=== PATIENT | female | born 1995 | race Caucasian/White ===

== ENCOUNTER → 2016-10-17 | Outpatient (CLI) | payer BC ==
[~2016-10-17] MED LIST: CLR10 PO; ETON1IMP2 INTRAD; FLUT0.15 NAE; MTR600X PO; MULT-1027 PO; NAPROXEN PO; OXYC-57 PO; VITAMIN B12 PO
--- NOTE | 2016-10-17 09:39 | DIAGNOSTIC IMAGING REPORT ---
CHEST 2 VIEWS ROUTINE HISTORY: Cough. PNEUMONIA COMPARISON: None. FINDINGS: The lungs are clear. Cardiac silhouette is normal in size. No pleural effusions. No pneumothorax. IMPRESSION: No acute process. Electronically signed by: Manish Whaley M.D. 10/17/2016 9:38 AM
== END | disposition home or self-care (01) ==
LOC: C.RAD1850 09:23
PROVIDERS: ATTEND Family Medicine Adolescent Medicine
DX: J18.9 Pneumonia, unspecified organism (principal)

== ENCOUNTER → 2016-10-31 | Outpatient (CLI) | payer BC | END | disposition home or self-care (01) | LOC: C.LAB1850 16:52 | PROVIDERS: ATTEND Family Medicine | DX: R05 Cough (principal) ==